=== PATIENT | male | born 1980 | race Caucasian/White ===

== ENCOUNTER 2018-09-25 17:45 | Emergency (ER) | payer OTHER, SELFPAY ==
[2018-09-25 17:47] VITALS: BP 131/96; PULSE 81; RESP 14; TEMP 36.1; O2SAT 98; BMI 29.7
--- NOTE | 2018-09-25 18:17 | CT_ITS ---
STUDY: CT BRAIN WITHOUT CONTRAST REASON FOR EXAM: Male, 38 years old. Trauma. RADIATION DOSAGE (If Supplied By Facility): CTDIvol = ( 44.99 ) mGy, DLP = ( 779.24 ) mGycm TECHNIQUE: Transaxial CT imaging of the brain was performed without administration of intravenous contrast material. Individualized dose optimization techniques were used for this CT. COMPARISON: None. FINDINGS: There is no acute bleed or infarct. There are normal white matter tracts. The ventricles are normal in configuration. There is no hydrocephalus. There is mucosal hypertrophy in the ethmoid sinuses. The visualized paranasal sinuses are otherwise clear. The mastoid air cells are well aerated. There is no skull fracture. CT/Brain/Head without Contrast IMPRESSION: No acute intracranial abnormality. Ethmoid sinusitis. Electronically Signed: Arsh Coughlin, at 20:47 EST Tel , Service support ,
--- NOTE | 2018-09-25 20:57 | ED.VISSUMM ---
- ER Visit Summary Date of Service: 09/25/18 Chief Complaint: Head injury History of Present Illness: The patient is a 38 M who presents after head injury. 3 days ago he fell on the ice and hit his head. He injured his neck as well but he states his neck is getting better. He denies any LOC at the time. He takes no blood thinning medications. He continues to get an intermittent throbbing in his head. He tried Tylenol and Advil which has helped a little bit. Physical Examination: Vital signs reviewed. HEENT exam unremarkable. He does have some occiput tenderness. Heart is regular rate and rhythm without murmurs. Lungs are clear to auscultation. Abdomen is soft and nontender. Extremities reveal no edema. Skin exam normal. Neurologic exam normal. Test Results: CAT scan of the head reveals no acute findings. There is some mild ethmoid sinusitis Emergency Department Course and Treatment: Patient likely has a small closed head injury. I feel that over time it should get better. I will give him naproxen for his pain. He will follow-up with his PCP Treatment Plan: [] Disposition: Discharge Impression: Closed head injury This note was generated with [employer] dictation software. It may contain incorrect words, spelling, and punctuation that were not noted in review of the chart prior to signing ED Disposition - Plan for ED Patient: Chief Complaint: Headache Referrals: Care Physician,No Primary [Primary Care Provider] -
--- NOTE | 2018-09-25 20:59 | ED.DEP ---
ED Disposition - Plan for ED Patient: Disposition: Home or Assisted Living Chief Complaint: Headache Instructions: ED Head Injury Closed Prescriptions: Naproxen [Naprosyn] 500 mg PO BID PRN #20 tab Referrals: Care Physician,No Primary [Primary Care Provider] -
[2018-09-25 21:07] VITALS: BP 154/92; PULSE 75; RESP 16; O2SAT 98
== END 2018-09-25 21:07 | disposition home or self-care (01) ==
PROVIDERS: Emergency Provider Emergency Medicine
DX: S09.90XA Unspecified injury of head, initial encounter (principal); W00.0XXA Fall on same level due to ice and snow, initial encounter; Y93.89 Activity, other specified; Y92.89 Other specified places as the place of occurrence of the external cause; Y99.8 Other external cause status; Z72.0 Tobacco use
CPT/HCPCS: 70450; 99282

== ENCOUNTER 2019-08-06 16:50 | Emergency (ER) | payer OTHER, SELFPAY ==
[2019-08-06 16:51] VITALS: BP 139/101; PULSE 79; RESP 16; TEMP 36.8; O2SAT 98; BMI 29.4
--- NOTE | 2019-08-06 17:00 | EKG12_ITS ---
Test Reason : CP Blood Pressure : / mmHG Vent. Rate : 078 BPM Atrial Rate : 078 BPM P-R Int : 158 ms QRS Dur : 086 ms QT Int : 352 ms P-R-T Axes : 045 050 035 degrees QTc Int : 401 ms Normal sinus rhythm Normal ECG Confirmed by ASAEL SILVA, STEPHANE ([id number]), editorial clerk JOCELINE PATHAK ([id number]) on 08/08/2019 11:44:50 AM Referred By: ANGELITO/ELE Confirmed By:STEPHANE VYAS MD
--- NOTE | 2019-08-06 17:02 | RAD_ITS ---
STUDY: X-RAY CHEST REASON FOR EXAM: Male, 39 years old. Chest pain TECHNIQUE: Single AP portable view of the chest. COMPARISON: None. FINDINGS: The lungs are clear and expanded. There is no demonstrated pleural abnormality. Normal size heart. Normal mediastinum and julio césar. Normal visualized pulmonary arteries. Normal visualized aortic arch and descending thoracic aorta. Normal visualized thoracic spine. Normal visualized ribs, clavicles, and shoulders. There is no demonstrated abnormality of the visualized soft tissue structures of the upper abdomen. RAD/Chest 1 View (Portable) IMPRESSION: Normal x-ray examination of the chest. Electronically Signed: Carlos Yanes MD at 17:30 EST , Service support ,
[2019-08-06 17:21] LABS: Absolute Lymphocyte Count 2.51 X10^3/uL (0.83-4.51); Absolute Neutrophil Count 5.6 X10^3/uL (2.0-7.7); Basophil# 0.05 X10^3/uL; Basophil% 0.6 % (0-1); Eosinophil# 0.29 X10^3/uL; Eosinophils% 3.2 % (0-5); Hemoglobin 14.3 g/dL (13.0-16.5); Lymphocyte # 2.51 X10^3/ul (4.0); Lymphocyte % 27.9 % (19-41); Mean Corp Hgb Conc 33.3 g/dL (32-36); Mean Corpuscular Hgb 30.6 pg (27.0-32.0); Mean Corpuscular Volume 92.1 fL (80-94); Mean Platelet Vol. 10.3 fl (6.2-12.0); Monocyte# 0.58 X10^3/uL; Monocyte% 6.4 % (0-10); NRBC Flagged by Analyzer 0 % (0-5); Neutrophil # 5.55 X10^3/uL (2.7-7.7); Neutrophil % 61.6 % (47-70); Platelet Count 293 K/mm3 (150-450); RBC Distribution Width CV 11.9 % (11.6-14.6); RBC Distribution Width SD 39.8 fl (35.1-43.9); Red Blood Count 4.67 M/mm3 (4.6-6.2)
[2019-08-06 17:22] LABS: Anion Gap 5 (5-15); BUN 11 mg/dL (7-18); BUN/Creat Ratio 13.3 RATIO (10-20); Calcium,Total 8.5 mg/dL (8.5-10.1); Chloride 108 mmol/L (98-107); Creatinine, Serum 0.83 mg/dL (0.70-1.30); EST Glomerular Filtration Rate 110 mL/min (>60); Est Glom Filt Rate - Afr Amer 133 mL/min (>60); Estimated Creatinine Clearance 132.45 ml/min; Glucose 98 mg/dL (74-106); Potassium 3.9 mmol/L (3.5-5.1); Sodium Level 140 mmol/L (136-145)
[2019-08-06] MEDS: Aspirin 81 MG TAB.CHEW 324 MG PO (17:44)
[2019-08-06] MEDS: Mag Hydrox/Al Hydrox/Simeth 30 ML UDC PO (17:46)
[2019-08-06] MEDS: 0.9% Normal Saline 1,000 ML 150 ML IV (17:46)
[2019-08-06 17:52] LABS: D-Dimer Quantitative (DVT/PE) 0.33 FEU/ug/m (0.27-0.49)
--- NOTE | 2019-08-06 18:18 | ED.VISSUMM ---
- ER Visit Summary Date of Service: 08/06/19 Chief Complaint: [Chest pain] History of Present Illness: The patient is a 39 M [presents to the emergency department complaint of chest pain that started 2 weeks ago. Patient had discomfort off and on. Patient also states that he had a lot of heartburn over the last 2 weeks and feels like there is acid Coming up into his throat. Patient was concerned because it has been lasting for 2 weeks. Patient is also been having this tightness and burning in his chest which concerned him. Patient currently rates his discomfort a 2 out of 10. He does describe some mild shortness of breath. He denies any exertional symptoms however. He denies recent travel or surgery. Not had any recent illness.] Physical Examination: [HEENT-PERRLA, EOMI. Cranial nerves II through XII grossly intact. TMs clear. Mucous membranes moist. No adenopathy. Cardiovascular-regular rate and rhythm without murmur or ectopy Lungs-clear to auscultation, chest wall stable without crepitus or subcu emphysema Abdomen-normoactive bowel sounds, soft, nontender, no rebound or rigidity, no peritoneal signs. Extremities-intact ?4, normal range of motion, normal pulses, atraumatic] Test Results: [EKG obtained arrival shows sinus rhythm with a ventricular rate of 78 bpm with no acute segment changes. CBC with differential was normal. Chemistries unremarkable. D-dimer was 0.33. Troponin is less than 0.015. Chest x-ray obtained was normal.] Emergency Department Course and Treatment: [Received aspirin on arrival. Patient was placed on a threat monitoring analyst. Patient also received a GI cocktail which mostly resolved his symptoms.] Treatment Plan: [At this point I do not feel his chest pain is cardiac in nature and suspect likely GI etiology. His KISHAN risk score is a 0.] Patient will be started on daily Prevacid. Advised to avoid eating after dinner and before going to bed. Patient advised to avoid acidic foods. Disposition: [Discharged home in stable condition. Patient will be referred to primary care physician swimming pool serviceperson for no doc for follow-up within next 3 to 5 days.] Impression: [Chest pain Gastroesophageal reflux disease] This note was generated with [employer] dictation software. It may contain incorrect words, spelling, and punctuation that were not noted in review of the chart prior to signing ED Disposition - Plan for ED Patient: Referrals: Care Physician,No Primary [Primary Care Provider] -
--- NOTE | 2019-08-06 18:21 | ED.DEP ---
ED Disposition - Plan for ED Patient: Instructions: CHEST PAIN, Uncertain Cause, GERD (Adult) Prescriptions: Lansoprazole [Prevacid] 30 mg PO DAILY #30 cap Prescription Printed Referrals: Care Physician,No Primary [Primary Care Provider] - Jordan Balbuena MD [STAFF PHYSICIAN] - 5-7 Days
[2019-08-06 18:31] VITALS: BP 108/79; PULSE 69; RESP 14; O2SAT 98
== END 2019-08-06 18:32 | disposition home or self-care (01) ==
LOC: ED 17:02
PROVIDERS: Emergency Provider Emergency Medicine
DX: R07.9 Chest pain, unspecified (principal); K21.9 Gastro-esophageal reflux disease without esophagitis
CPT/HCPCS: 71045; 80048; 84484; 85025; 85379; 93005; 96360; 99285; J7030; A4216

== ENCOUNTER 2021-09-07 16:09 | Outpatient (CLI) | payer OTHER, SELFPAY | END 2021-09-07 23:59 | disposition short-term general hospital (02) | LOC: LABSPEC 16:09 | PROVIDERS: Referring Provider Physician Assistant Surgical; Visit Provider Physician Assistant Surgical | DX: U07.1 COVID-19 (principal) | CPT/HCPCS: 87635; U0003; U0005 ==

== ENCOUNTER 2022-03-19 17:49 | Emergency (ER) | payer OTHER, SELFPAY ==
[2022-03-19 17:50] VITALS: BP 153/109; PULSE 90; RESP 14; TEMP 36.1; O2SAT 99; BMI 27.6
--- NOTE | 2022-03-19 18:15 | ED.VIS.DENTA ---
HPI History of Present Illness Chief Complaint: Dental Informant: patient Onset/Context/Timing Onset: Today Context: Gradual Onset Timing: Continuous Quality: Ache Location: Right maxillary tooth Current Severity: Moderate Maximum Severity: Moderate Worsened by: Eating, palpation Relieved by: - (Nothing) Associated Symptoms Assocated Symptom - Dental: face swelling Narrative Narrative: Patient woke up with a mild tooth ache, as the day went on he developed significant right facial swelling. No discharge from the nose or intraorally. He has known poor dentition, and already has a dentist appointment 3 days from now. He feels malaised a little today, but no fevers or chills or other symptoms. PFSH PFSH Medical History no medical history no medical history Home Medications lansoprazole 30 mg capsule,delayed release 30 mg PO DAILY #30 caps 08/06/19 [Rx Last Taken Unknown] dexamethasone 6 mg tablet (Decadron) 6 mg PO DAILY #5 tabs 09/07/21 [Rx Last Taken Unknown] clindamycin HCl 300 mg capsule (Cleocin HCl) 300 mg PO Q6H #40 CAPSULES 03/19/22 [Rx Last Taken Unknown] Allergy/AdvReac Type Severity Reaction Status Date / Time No Known Allergies Allergy Verified 03/19/22 17:49 Surgical History no surgical history no surgical history Social History Smoking Status: Former smoker ROS ROS ED Constitutional Constitutional ED: Denies chills or fever(s) Eyes Eyes: Denies change in vision or double vision ENT ENT ED: Reports as per HPI and dental pain; Denies sinus pain or throat swelling Cardiovascular Cardiovascular: Denies chest pain or palpitations Respiratory/Chest Respiratory/Chest: Denies cough or dyspnea Integumentary Denies abscess or rash Neurologic Neurologic: Denies headache(s), paresthesias or weakness EXAM Physical Exam Const Vital Signs: 03/19/22 17:50 Temperature 97 F L Temperature Source Temporal Pulse Rate 90 Respiratory Rate 14 Blood Pressure 153/109 H Blood Pressure Mean 123 Pulse Ox 99 Oxygen Delivery Method Room Air Positive well nourished and well developed General Appearance ED: well developed and NAD HEENT HEENT Narrative: Very poor dentition, tender decayed tooth approximately #6; limited eval because there are several teeth missing. Diffuse right mid facial swelling without a focal palpable collection. No overlying erythema/induration. No nasal discharge. No trismus. No purulent discharge expressible from anywhere intraorally. Stensen's duct normal. Face and Sinus: sinuses nontender Throat: posterior oropharynx normal Eyes PERRL and EOMs intact bilaterally Neck no lymphadenopathy and supple Resp normal respiratory effort Neuro oriented x3 and CN's II-XII intact bilaterally Sensorium / Orientation: alert Gait (Neuro): normal gait Psych mental status grossly normal and thought process normal Skin no rashes or lesions noted and no wounds MDM MDM MDM Narrative Medical decision making narrative: Appears to be consistent with an early dental abscess. Certainly appears infected, there is inflammation and swelling, but no focal collection that requires drainage or aspiration right now. I will go straight to clindamycin for this, advised to take a probiotic or eat yogurt to avoid antibiotic associated diarrhea, given ibuprofen and advised to use NSAIDs, follow-up with dentistry as scheduled. He is comfortable with that plan we discussed reasons to return. Discharge Plan Triage Chief Complaint: Dental ED Provider: Sarath Urena Dx/Rx/DC Orders Clinical Impression: Infected dental caries Instructions: ED Abscess Antibiotic Treatment Only Prescriptions: New clindamycin HCl [Cleocin HCl] 300 mg capsule 300 mg PO Q6H Qty: 40 0RF No Action dexamethasone [Decadron] 6 mg tablet 6 mg PO DAILY Qty: 5 0RF lansoprazole 30 MG capsule 30 mg PO DAILY Qty: 30 0RF Primary Care Provider: Care Physician,No Primary Referrals: Care Physician,No Primary [Primary Care Provider] - Dentist,Your [STAFF PHYSICIAN] - Keep Nette appointment Disposition Disposition: Home, Self Care
[2022-03-19] MEDS: Clindamycin HCl 150 MG Capsule 300 MG PO (18:26)
[2022-03-19] MEDS: Ibuprofen 600 MG Tablet PO (18:26)
== END 2022-03-19 18:34 | disposition home or self-care (01) ==
LOC: ED 18:29
PROVIDERS: Emergency Provider Emergency Medicine; Visit Provider Emergency Medicine
DX: K02.9 Dental caries, unspecified (principal); Z87.891 Personal history of nicotine dependence
CPT/HCPCS: 99282